=== PATIENT | female | born 1990 | race Caucasian/White ===

== ENCOUNTER → 2023-07-13 | Outpatient (CLI) | payer MEDICAID, SELFPAY ==
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
== END | disposition home or self-care (01) ==
LOC: MTLAB 12:34
PROVIDERS: Referring Provider Physician Assistant; Visit Provider Physician Assistant
DX: S09.93XA Unspecified injury of face, initial encounter (principal); Y09 Assault by unspecified means
CPT/HCPCS: 70150; 72040; 73070